=== PATIENT | male | born 1960 | race Hispanic/Latino ===

== ENCOUNTER 2018-01-15 08:08 | Outpatient (CLI) | payer BC ==
--- NOTE | 2018-01-15 11:03 | XRay Report ---
RIGHT KNEE RADIOGRAPHS INDICATION: Right knee pain. COMPARISON: None similar at this institution. FINDINGS: AP, lateral, oblique and sunrise views of the right knee demonstrate intact articulation. Joint spaces grossly preserved. Mild tibial spines and superior patellar pole degenerative spurring. Faint atherosclerotic vascular calcifications. No significant suprapatellar effusion. CONCLUSION: Mild right knee osteoarthrosis, as described. Thank you for the opportunity to participate in this patient's care.
== END 2018-01-15 08:09 | disposition home or self-care (01) ==
LOC: SPVIMAG 08:08
PROVIDERS: ATTEND Orthopaedic Surgery Sports Medicine
DX: M17.11 Unilateral primary osteoarthritis, right knee (principal); I70.0 Atherosclerosis of aorta